=== PATIENT | male | born 1965 | race Caucasian/White ===

== ENCOUNTER 2021-03-03 18:49 | Emergency (ER) | payer OTHER ==
[2021-03-03 20:09] LABS: BASOPHIL 0.4 % (0-2); EOSINOPHIL 1.8 % (0-5); HCT 43.5 % (42.0-52.0); HGB 14.7 g/dl (13.2-18.0); LYMPHOCYTE 27.3 % (15-48); MCH 32.4 pg (25.0-31.0); MCHC 33.8 g/dL (32.0-36.0); MCV 95.8 fL (78.0-100.0); MONOCYTE 9.1 % (0-12); MPV 9.9 fL (6.0-9.5); NEUTROPHIL 61.2 % (41-80); NRBC 0; PLT 210 K/uL (150-400); RBC 4.54 M/uL (4.70-6.00); RDW 14.1 % (11.5-14.0); WBC 10.2 K/uL (4.0-10.5)
[2021-03-03 20:35] LABS: ALBUMIN 3.5 g/dL (3.4-5.0); BILIRUBIN - TOTAL 0.3 mg/dL (0.2-1.0); CREATININE 0.8 mg/dL (0.67-1.17); GLOBULIN (CALCULATION) 3.3 g/dL; POTASSIUM 3.5 mmol/L (3.5-5.1); TOTAL PROTEIN 6.8 g/dL (6.4-8.2)
[2021-03-03 22:31] LABS: AMPHETAMINES NEGATIVE (NEGATIVE); BARBITURATES NEGATIVE (NEGATIVE); ECSTASY (MDMA) NEGATIVE (NEGATIVE); MARIJUANA (THC) NEGATIVE (NEGATIVE); METHADONE NEGATIVE (NEGATIVE); OPIATES NEGATIVE (NEGATIVE); OXYCODONE NEGATIVE (NEGATIVE)
== END 2021-03-03 22:18 | disposition left against medical advice (07) ==
LOC: FER 18:49
PROVIDERS: Emergency Medicine
DX: R07.89 Other chest pain (principal); I10 Essential (primary) hypertension; J44.9 Chronic obstructive pulmonary disease, unspecified; I25.10 Atherosclerotic heart disease of native coronary artery without angina pectoris; I25.2 Old myocardial infarction; F17.200 Nicotine dependence, unspecified, uncomplicated; Z98.890 Other specified postprocedural states; Z53.8 Procedure and treatment not carried out for other reasons
CPT/HCPCS: 36415; 71045; 80053; 80305; 84484; 85025; 93005; J7030